=== PATIENT | male | born 1945 | race Caucasian/White ===

== ENCOUNTER → 2017-04-13 | Outpatient (CLI) | payer MEDICARE, OTHER ==
[2017-04-13 11:14] LABS: Basophils # (A) 0.1 k/uL (0-0.2); Basophils % (A) 1 %; CH 30.1; CHCM 33.7; Eosinophils # (A) 0.2 k/uL (0-0.7); Eosinophils % (A) 3 %; HCT 39.4 % (39.0-53.0); HDW 2.38; HGB 13.7 gm/dL (13.0-17.5); Luc # (Auto) 0.23; Luc % (Auto) 3; Lymphocytes # (A) 1.8 k/uL (1.0-4.8); Lymphocytes % (A) 21 %; MCH 31.1 pg (25.0-35.0); MCHC 34.7 g/dL (31.0-37.0); MCV 89.8 fL (80.0-100.0); Mean Platelet Volume 7.2; Monocytes # (A) 0.6 k/uL (0-1.0); Monocytes % (A) 7 %; Neutrophils # (A) 5.6 k/uL (1.3-7.7); Neutrophils % (A) 66 %; RBC 4.38 m/uL (4.30-5.90); RDW 12.8 % (11.5-15.5); WBC 8.6 k/uL (3.8-10.6); WBC (Perox) 9.25
[2017-04-13 13:44] LABS: Erythrocyte Sedimentation Rate 10 mm/hr (0-15)
== END | disposition home or self-care (01) ==
LOC: LABWHC1 10:20
PROVIDERS: ATTEND Orthopaedic Surgery
DX: M25.551 Pain in right hip (principal); M16.11 Unilateral primary osteoarthritis, right hip; M54.5 Low back pain; M51.36 Other intervertebral disc degeneration, lumbar region
CPT/HCPCS: 36415; 84165; 85025; 85652; 86140

== ENCOUNTER → 2017-04-23 | Outpatient (CLI) | payer MEDICARE, OTHER ==
--- NOTE | 2017-04-23 14:19 | NM ---
EXAMINATION TYPE: NM bone scan whole body DATE OF EXAM: 04/23/2017 COMPARISON: NONE HISTORY: Right hip pain. Delayed whole-body scanning was performed following the injection of 27.4 mCi Tc 99m MDP. Images acq uired 3.25 hours post injection. FINDINGS: There is evidence of a left knee prosthesis. There is increased activity in the medial comp artment of the right knee. There is increased activity in the sternoclavicular joint on the right. Th ere is some diffuse uptake in the left forefoot. No abnormal activity is noted about either hip. IMPRESSION: 1. NO ABNORMAL ACTIVITY ABOUT THE HIPS. 2. EVIDENCE OF A PREVIOUS LEFT-SIDED KNEE PROSTHESIS. 3. DEGENERATIVE ACTIVITY IN THE RIGHT KNEE AND RIGHT STERNOCLAVICULAR JOINT. 4. DIFFUSE INCREASED ACTIVITY IN THE LEFT FOREFOOT.
== END ==
LOC: RADNMMAIN 09:30
PROVIDERS: ATTEND Orthopaedic Surgery
DX: M17.11 Unilateral primary osteoarthritis, right knee (principal); M19.011 Primary osteoarthritis, right shoulder; M54.5 Low back pain
CPT/HCPCS: 78306; A9503

== ENCOUNTER → 2017-09-25 | Outpatient (CLI) | payer MEDICARE, OTHER ==
--- NOTE | 2017-09-25 10:56 | US ---
EXAMINATION TYPE: US duplex aorta DATE OF EXAM: 09/25/2017 COMPARISON: None CLINICAL HISTORY: 72-year-old male M54.6 pain in thoracic spine. Pain in lower thoracic and upper yung mbar spine x 2 days per patient. TECHNIQUE: Multiple sonographic images of the abdominal aorta are obtained. FINDINGS: EXAM MEASUREMENTS: Abdominal Aorta: Proximal: 2.7cm TR Mid: 2.4cm A/P Distal: 2.3cm TR Bifurcation: 1.4cm A/P right SUMEET, and 1.1cm A/P left SUMEET Intimal thickening and atherosclerotic irregularity is noted throughout the aorta and extending into the common iliac arteries. Color flow patency is documented. 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 No evidence for AAA.
== END ==
LOC: RADUSWWP 09:52
PROVIDERS: ATTEND Family Medicine
DX: I77.811 Abdominal aortic ectasia (principal)
CPT/HCPCS: 93979

== ENCOUNTER → 2018-05-14 | Outpatient (CLI) | payer MEDICARE, OTHER ==
--- NOTE | 2018-05-14 09:43 | US ---
EXAMINATION TYPE: US prostate transrectal DATE OF EXAM: 05/14/2018 COMPARISON: NONE CLINICAL HISTORY: R97.20 Elevated PSA levels. This examination was performed using the transrectal probe. EXAM MEASUREMENTS: Gland Size: 4.7 x 2.7 x 4.7cm Volume: 31.22 Predicted PSA: 3.7 Actual PSA (if available): 4.8 There is a cystic area at base in peripheral zone measuring 0.4 x 0.3 x 0.3cm. Mid right is a hypoechoic area in peripheral zone measuring 0.4 x 0.3 x 0.4cm. Seminal vesicles are unremarkable on initial images. Prostate gland is slightly enlarged in size with central zone calcifications. Some small cystic changes present. There is 4 x 3 x 4 mm hypoechoic nod ule or area right mid peripheral zone. IMPRESSION: Slightly enlarged heterogeneous prostate with 4 mm suspicious hypoechoic area or nodule r ight mid zone, actual PSA is slightly greater than predicted PSA, advise ultrasound-guided random and targeted sampling to exclude neoplasia.
== END | disposition home or self-care (01) ==
LOC: RADUSMAIN 08:20
PROVIDERS: ATTEND Family Medicine
DX: N40.0 Benign prostatic hyperplasia without lower urinary tract symptoms (principal)
CPT/HCPCS: 76872

== ENCOUNTER → 2018-06-06 | Outpatient (CLI) | payer MEDICARE, OTHER ==
--- NOTE | 2018-06-06 11:32 | FL ---
MODIFIED SWALLOW / DEGLUTITION STUDY DATE OF EXAM: 06/06/2018 CLINICAL HISTORY: 73-year-old male with globus sensation and some coughing/choking episodes with stacie ds and liquids, Dysphagia. TECHNIQUE: Deglutition study is performed utilizing thin liquid barium, honey and nectar thick liqui d barium, barium thick applesauce, and barium coated cracker. Total fluoroscopy time: 1 minute 40 seconds. Total images: None. Real-time fluoroscopy support was provided to speech pathology. COMPARISON: None. FINDINGS: The oral and pharyngeal phases show satisfactory initiation and propagation with all modalities teste d. Normal mastication is seen with solid modalities tested. There is no evidence of penetration or aspiration with any modality tested. Mild hypertrophy of the cricopharyngeus causing posterior impre ssion along the hypopharynx. There is also a tiny Zenker's diverticulum which fills with the liquid c onsistencies but immediately empties. The tiny Zenker's does not appear to fill with the solid consis tencies. No significant pharyngeal residue was appreciated. IMPRESSION: 1. No evidence for penetration or aspiration. 2. Incidental mild CP hypertrophy and a tiny Zenker's diverticulum which fills but immediately emptie s after swallows of liquid consistencies. It does not clearly fill with the solid consistencies. 3. Please refer to speech therapist notes for further details if necessary.
== END | disposition home or self-care (01) ==
LOC: RADFLMAIN 10:29
PROVIDERS: ATTEND Otolaryngology
DX: J39.2 Other diseases of pharynx (principal); K22.5 Diverticulum of esophagus, acquired
CPT/HCPCS: 74230

== ENCOUNTER 2019-07-05 19:15 | Emergency (ER) | payer MEDICARE, OTHER ==
[2019-07-05 20:31] LABS: Appearance,Urine Cloudy (Clear); Bacteria,Urine Many /hpf; Bilirubin,Urine Negative (Negative); Blood,Urine Moderate (Negative); Color,Urine Yellow; Glucose,Urine (UA) Negative (Negative); Ketones,Urine Negative (Negative); Leukocyte Esterase,Urine Large (Negative); Mucus,Urine Moderate /hpf; Nitrite,Urine Negative (Negative); PH, Urine 5.5 (5.0-8.0); Protein,Urine Trace (Negative); RBC,Urine 26 /hpf (0-5); Specific Gravity,Urine 1.022 (1.001-1.035); Urobilinogen,Urine <2.0 mg/dL (<2.0); WBC,Urine >182 /hpf (0-5)
[2019-07-05 20:33] LABS: Basophils % (A) 0 %; Eosinophils # (A) 0.2 k/uL (0-0.7); Eosinophils % (A) 1 %; HCT 36.8 % (39.0-53.0); Lymphocytes # (A) 1.2 k/uL (1.0-4.8); Lymphocytes % (A) 10 %; MCH 29.2 pg (25.0-35.0); MCHC 32.7 g/dL (31.0-37.0); MCV 89.4 fL (80.0-100.0); Monocytes # (A) 0.8 k/uL (0-1.0); Monocytes % (A) 7 %; Neutrophils # (A) 9.5 k/uL (1.3-7.7); Neutrophils % (A) 80 %; Platelet Count 294 k/uL (150-450); RBC 4.12 m/uL (4.30-5.90); RDW 13.2 % (11.5-15.5); WBC 11.8 k/uL (3.8-10.6)
[2019-07-05 20:36] LABS: Albumin 3.7 g/dL (3.5-5.0); Calcium 9.1 mg/dL (8.4-10.2); Potassium 4.5 mmol/L (3.5-5.1); Total Bilirubin 0.6 mg/dL (0.2-1.3); Total Protein 6.5 g/dL (6.3-8.2)
[2019-07-05] MEDS ORDERED: cefTRIAXone IN SWFI 1,000 MG/10 ML SYRINGE IVP STA (20:39)
--- NOTE | 2019-07-05 20:54 | ED ---
Male Urogenital HPI - General Chief complaint: Urogenital Stated complaint: Urogenital Time Seen by Provider: 07/05/19 19:29 Source: patient, family Mode of arrival: ambulatory Limitations: no limitations - History of Present Illness Initial comments: 74-year-old male presenting for urgency and frequency. Patient states that he has had urgency frequency and general unwell feeling for the past 24 hours. Patient states he had a recent prostate biopsy to rule out cancer. Patient states that he does not feel like he has essentially of the abdomen as well as retaining urine as MRSA sensation of constantly having to go and only urinating a small amount. Patient states he resumed his prostate medications which she had discontinued for a week prior to the surgical procedure. Patient denies any hematuria. Patient states the urine does look cloudy. Patient denies any testicular swelling or redness. Patient denies any back pain denies any record ed fevers. Remaining review of systems negative upon arrival patient appears well signs of acute distress. - Related Data Home Medications Medication Instructions Recorded Confirmed Atorvastatin [Lipitor] 10 mg PO DAILY 03/03/16 07/05/19 Cholecalciferol [Vitamin D3 (25 1,000 unit PO DAILY 03/03/16 07/05/19 Mcg = 1000 Iu)] Diclofenac Sodium/Misoprostol 1 tab PO BID 03/03/16 07/05/19 [Diclofenac-Misoprost 75-200 Tb] Losartan Potassium 100 mg PO QAM 03/03/16 07/05/19 Multivitamins, Thera [Multivitamin 1 tab PO DAILY 03/03/16 07/05/19 (formulary)] Potassium Gluconate 99 mg PO DAILY 03/03/16 07/05/19 Vitamin B Complex 1 tab PO DAILY 03/03/16 07/05/19 Aspirin EC [Ecotrin Low Dose] 81 mg PO DAILY 07/05/19 07/05/19 Tamsulosin HCl [Flomax] 0.4 mg PO DAILY 07/05/19 07/05/19 rOPINIRole HCL [Requip] 2 mg PO TID 07/05/19 07/05/19 Previous Rx's Medication Instructions Recorded Amoxic-Pot Clav 875-125Mg 1 tab PO Q12HR 7 Days #14 tablet 07/05/19 [Augmentin 875-125] Allergies Allergy/AdvReac Type Severity Reaction Status Date / Time iodine AdvReac Rapid Verified 07/05/19 20:07 Heart Rate niacin AdvReac FLUSHED Verified 07/05/19 20:07 oxycodone HCl AdvReac "MADE HIM Verified 07/05/19 20:07 [From OxyContin] GO INTO ANOTHER WORLD" shellfish derived [Shellfish] AdvReac Rapid Verified 07/05/19 20:07 Heart Rate/SEIZURE Review of Systems ROS Statement: Those systems with pertinent positive or pertinent negative responses have been documented in the HPI. ROS Other: All systems not noted in ROS Statement are negative. Past Medical History Past Medical History: GERD/Reflux, Hyperlipidemia, Hypertension, Osteoarthritis (OA), Renal Disease Additional Past Medical History / Comment(s): RESTLESS LEG, nephrolithiasis- passed on his own. History of Any Multi-Drug Resistant Organisms: None Reported Past Surgical History: Joint Replacement, Orthopedic Surgery Additional Past Surgical History / Comment(s): 03/07/16 Total L knee arthroplasty. Other surgical hx: RT ROTATOR CUFF, RT EYE CATARACT, colonoscopy Past Anesthesia/Blood Transfusion Reactions: No Reported Reaction Past Psychological History: No Psychological Hx Reported Smoking Status: Former smoker Past Alcohol Use History: None Reported Past Drug Use History: None Reported - Past Family History Mother Family Medical History: Dementia Additional Family Medical History / Comment(s): Mother at age 91 or 92 yrs. She had dementia later in her life. Father Additional Family Medical History / Comment(s): Father of heart problems at the age of 78 yrs. General Exam - General Exam Comments Initial Comments: General: The patient is awake and alert, in no distress, and does not appear acutely ill. Eye: Pupils are equal, round and reactive to light, extra-ocular movements are intact. No nystagmus. There is normal conjunctiva bilaterally. No signs of icterus. Ears, nose, mouth and throat: There are moist mucous membranes and no oral lesions. Neck: The neck is supple, there is no tenderness or JVD. Cardiovascular: There is a regular rate and rhythm. No murmur, rub or gallop is appreciated. Respiratory: Lungs are clear to auscultation, respirations are non-labored, breath sounds are equal. No wheezes, stridor, rales, or rhonchi. Gastrointestinal: Soft, non-distended, non-tender abdomen without masses or organomegaly noted. There is no rebound or guarding present. No CVA tenderness. No testicular swelling, pain to palpation or redness on exam. Musculoskeletal: Normal ROM, no tenderness. Strength 5/5. Sensation intact. Pulses equal bilaterally 2+. Neurological: A&O x 3. CN II-XII intact, There are no obvious motor or sensory deficits. Coordination appears grossly intact. Speech is normal. Skin: Skin is warm and dry and no rashes or lesions are noted. Psychiatric: Cooperative, appropriate mood & affect, normal judgment. Limitations: no limitations Course Vital Signs 07/05/19 07/05/19 19:22 20:53 Temperature 100 F H 99.1 F Pulse Rate 69 67 Respiratory 20 18 Rate Blood Pressure 138/65 108/63 O2 Sat by Pulse 98 94 L Oximetry Medical Decision Making - Medical Decision Making 74-year-old male presenting her constitutional symptoms urgency frequency. is concerned for urinary tract infection. Urinalysis is consistent with a urinary tract infection. Patient does not appear toxic. Patient is provided dose of ceftriaxone emergency department. Patient's urologist was consult and we discussed laboratory studies and urinalysis. They recommended discharge with Augmentin and follow-up in the office on Sunday. Return parameters were discussed including immediate return for worsening generalized unwell feeling, high fevers or persistent symptoms, urinary retention, abdominal pain. Patient verbalizes understanding. Patient was discharged appearing well agreeable to this care plan return parameters and follow-up. Discharge appearing well, pleased with plan. Dr. Joseph spoke with Dr. Guzman, and is agreeable with plan. - Lab Data Result diagrams: 07/05/19 20:13 07/05/19 20:13 Lab Results 07/05/19 07/05/19 07/05/19 Range/Units 20:13 20:13 20:13 WBC 11.8 H (3.8-10.6) k/uL RBC 4.12 L (4.30-5.90) m/uL Hgb 12.0 L (13.0-17.5) gm/dL Hct 36.8 L (39.0-53.0) % MCV 89.4 (80.0-100.0) fL MCH 29.2 (25.0-35.0) pg MCHC 32.7 (31.0-37.0) g/dL RDW 13.2 (11.5-15.5) % Plt Count 294 (150-450) k/uL Neutrophils % 80 % Lymphocytes % 10 % Monocytes % 7 % Eosinophils % 1 % Basophils % 0 % Neutrophils # 9.5 H (1.3-7.7) k/uL Lymphocytes # 1.2 (1.0-4.8) k/uL Monocytes # 0.8 (0-1.0) k/uL Eosinophils # 0.2 (0-0.7) k/uL Basophils # 0.0 (0-0.2) k/uL Sodium 137 (137-145) mmol/L Potassium 4.5 (3.5-5.1) mmol/L Chloride 105 (98-107) mmol/L Carbon Dioxide 22 (22-30) mmol/L Anion Gap 10 mmol/L BUN 35 H (9-20) mg/dL Creatinine 1.22 (0.66-1.25) mg/dL Est GFR (CKD-EPI)AfAm 68 (>60 ml/min/1.73 sqM) Est GFR (CKD-EPI)NonAf 59 (>60 ml/min/1.73 sqM) Glucose 125 H (74-99) mg/dL Calcium 9.1 (8.4-10.2) mg/dL Total Bilirubin 0.6 (0.2-1.3) mg/dL AST 28 (17-59) U/L ALT 32 (21-72) U/L Alkaline Phosphatase 78 (38-126) U/L Total Protein 6.5 (6.3-8.2) g/dL Albumin 3.7 (3.5-5.0) g/dL Urine Color Yellow Urine Appearance Cloudy (Clear) Urine pH 5.5 (5.0-8.0) Ur Specific [place] 1.022 (1.001-1.035) Urine Protein Trace H (Negative) Urine Glucose (UA) Negative (Negative) Urine Ketones Negative (Negative) Urine Blood Moderate H (Negative) Urine Nitrite Negative (Negative) Urine Bilirubin Negative (Negative) Urine Urobilinogen <2.0 (<2.0) mg/dL Ur Leukocyte Esterase Large H (Negative) Urine RBC 26 H (0-5) /hpf Urine WBC >182 H (0-5) /hpf Urine WBC Clumps Many H (None) /hpf Urine Bacteria Many H (None) /hpf Urine Mucus Moderate H (None) /hpf Disposition Clinical Impression: UTI (urinary tract infection), Urgency of urination, Frequency of urination Disposition: HOME SELF-CARE Condition: Good Instructions (If sedation given, give patient instructions): Urinary Tract Infection in Men (ED) Additional Instructions: Please use medication as discussed. Please follow-up with Dr. Hunter or Megan on Sunday. Please return if develop fever, feel worse. Please return to emergency room if the symptoms increase or worsen or for any other concerns. Prescriptions: Amoxic-Pot Clav 875-125Mg [Augmentin 875-125] 1 tab PO Q12HR 7 Days #14 tablet Is patient prescribed a controlled substance at d/c from ED?: No Referrals: Donta Rodriguez MD [Primary Care Provider] - 1-2 days Zackary Hunter MD [STAFF PHYSICIAN] - 07/07/19 Time of Disposition: 20:54
[2019-07-05 20:55] VITALS: PULSE 67; RESP 18; TEMP 99.1
[2019-07-05 20:56] VITALS: BP 108/63
== END 2019-07-05 21:06 | disposition home or self-care (01) ==
LOC: EC 19:15
DX: N39.0 Urinary tract infection, site not specified (principal); I10 Essential (primary) hypertension; E78.5 Hyperlipidemia, unspecified; M19.90 Unspecified osteoarthritis, unspecified site; Z79.1 Long term (current) use of non-steroidal anti-inflammatories (NSAID); Z79.899 Other long term (current) drug therapy; Z79.82 Long term (current) use of aspirin; Z88.5 Allergy status to narcotic agent; Z88.1 Allergy status to other antibiotic agents; Z91.013 Allergy to seafood; Z91.041 Radiographic dye allergy status; Z96.652 Presence of left artificial knee joint; Z87.891 Personal history of nicotine dependence
CPT/HCPCS: 51798; 36415; 80053; 85025; 81001; 99283; 96374; J0696

== ENCOUNTER → 2019-09-01 | Outpatient (CLI) | payer MEDICARE ==
--- NOTE | 2019-09-01 15:28 | US ---
EXAMINATION TYPE: US scrotum with doppler. Grayscale and color Doppler Duplex imaging performed of keven pereira scrotum. DATE OF EXAM: 09/01/2019 COMPARISON: NONE CLINICAL HISTORY: N45.2 Orchitis. Right testicular swelling for 3 days EXAM MEASUREMENTS: TESTICLES: Right Testicle: 3.2 x 2.4 x 2.9 cm Left Testicle: 3.6 x 2.3 x 2.2 cm EPIDIDYMIS HEAD: Right Epididymis: 1.2 x 0.9 cm Left Epididymis: 1.9 x 0.8 cm Doppler performed to assess for testicular vascularity; good bilateral color flow and waveforms are s een. There is no evidence of testicular torsion. Presence of hydroceles: fluid collection around bilateral testicles, right greater than left. Right measures 2.9 x 2.3 x 4.5 cm Presence of varicoceles: posterior to left testicle, increased flow with valsalva. Increased flow in right testicle and epididymis. The right epi tail is enlarged and heterogeneous. IMPRESSION: 1. Findings of right-sided epididymal orchitis as stated in the patient history. There is also a mode rate uncomplicated right hydrocele, possibly reactive. 2. Left-sided varicocele incidentally seen. 3. Moderate left hydrocele with some internal debris.
== END | disposition home or self-care (01) ==
LOC: RADUSWWP 14:40
PROVIDERS: ATTEND Internal Medicine
DX: N45.2 Orchitis (principal); N43.2 Other hydrocele
CPT/HCPCS: 76870; 93975

== ENCOUNTER 2019-11-01 03:23 | Emergency (ER) | payer MEDICARE ==
[2019-11-01 03:33] VITALS: RESP 18
--- NOTE | 2019-11-01 05:46 | US ---
EXAM: US Scrotum CLINICAL HISTORY: Reason: scrotal swelling TECHNIQUE: Real-time ultrasound of the scrotum with color Doppler and image documentation. COMPARISON: 09/01/19. FINDINGS: Right testicle: Unremarkable. No mass. No torsion. Left testicle: Unremarkable. No mass. No torsion. Epididymides: Unremarkable. Scrotum: There is marked scrotal edema, new or significantly worsened since the prior exam. No loculated scrotal fluid collection or evidence of soft tissue gas. Small to moderate sized left-sided hydrocele and trace right hydrocele. IMPRESSION: Marked scrotal edema, which may be due to a cellulitis, hypervolemia or associated with recent surgery. No testicular torsion or lesions.
--- NOTE | 2019-11-01 06:07 | ED ---
Male Urogenital HPI - General Chief complaint: Urogenital Stated complaint: Post prostate surg issues Time Seen by Provider: 11/01/19 03:53 Source: patient Mode of arrival: wheelchair Limitations: no limitations - History of Present Illness Initial comments: 's patient is a 74-year-old man who presents to have evaluation for scrotal swelling. The patient relates that he had what sounds like a laparoscopic prostatectomy performed at [facility] by Dr. Scott Small. Patient states that he had been doing well at home other than having a little bit of constipation. Yesterday in the evening, he had taken bowel sounds like an enema and then had been straining to have a bowel movement. He states that he did eventually pass a large amount of stool. Patient states that he then went and was able to sleep. When he woke he noticed that his scrotum had developed moderate amount of swelling. Patient has not had fever or chills. He is not having significant pain. He has not noticed a change in urine output. He does have the Newby catheter that has been present since his surgery. No abdomen or chest pain no cough or dyspnea. No leg swelling. MD Complaint: testicle swelling -: hour(s) Radiation: none Severity: mild Quality: dull Consistency: constant Improves with: none Worsens with: none Reports: swelling - Related Data Home Medications Medication Instructions Recorded Confirmed Atorvastatin [Lipitor] 10 mg PO DAILY 03/03/16 07/05/19 Cholecalciferol [Vitamin D3 (25 1,000 unit PO DAILY 03/03/16 07/05/19 Mcg = 1000 Iu)] Diclofenac Sodium/Misoprostol 1 tab PO BID 03/03/16 07/05/19 [Diclofenac-Misoprost 75-200 Tb] Losartan Potassium 100 mg PO QAM 03/03/16 07/05/19 Multivitamins, Thera [Multivitamin 1 tab PO DAILY 03/03/16 07/05/19 (formulary)] Potassium Gluconate 99 mg PO DAILY 03/03/16 07/05/19 Vitamin B Complex 1 tab PO DAILY 03/03/16 07/05/19 Aspirin EC [Ecotrin Low Dose] 81 mg PO DAILY 07/05/19 07/05/19 Tamsulosin HCl [Flomax] 0.4 mg PO DAILY 07/05/19 07/05/19 rOPINIRole HCL [Requip] 2 mg PO TID 07/05/19 07/05/19 Previous Rx's Medication Instructions Recorded Amoxic-Pot Clav 875-125Mg 1 tab PO Q12HR 7 Days #14 tablet 07/05/19 [Augmentin 875-125] Allergies Allergy/AdvReac Type Severity Reaction Status Date / Time iodine AdvReac Rapid Verified 11/01/19 03:33 Heart Rate niacin AdvReac FLUSHED Verified 11/01/19 03:33 oxycodone HCl AdvReac "MADE HIM Verified 11/01/19 03:33 [From OxyContin] GO INTO ANOTHER WORLD" shellfish derived [Shellfish] AdvReac Rapid Verified 11/01/19 03:33 Heart Rate/SEIZURE Review of Systems ROS Statement: Those systems with pertinent positive or pertinent negative responses have been documented in the HPI. ROS Other: All systems not noted in ROS Statement are negative. Constitutional: Denies: fever, chills, weakness Respiratory: Denies: cough, dyspnea Cardiovascular: Denies: chest pain, palpitations, edema Gastrointestinal: Reports: as per HPI, constipation. Denies: abdominal pain, vomiting, diarrhea, melena, hematochezia Genitourinary: Reports: as per HPI, testicular mass (scrotal swelling). Denies: dysuria, hematuria Musculoskeletal: Denies: back pain Skin: Denies: rash Neurological: Denies: weakness, numbness Past Medical History Past Medical History: GERD/Reflux, Hyperlipidemia, Hypertension, Osteoarthritis (OA), Prostate Disorder, Renal Disease Additional Past Medical History / Comment(s): RESTLESS LEG, nephrolithiasis- passed on his own. History of Any Multi-Drug Resistant Organisms: None Reported Past Surgical History: Joint Replacement, Orthopedic Surgery, Prostate Surgery Additional Past Surgical History / Comment(s): 03/07/16 Total L knee arthroplasty. Other surgical hx: RT ROTATOR CUFF, RT EYE CATARACT, colonoscopy, prostate removed, Past Anesthesia/Blood Transfusion Reactions: No Reported Reaction Past Psychological History: No Psychological Hx Reported Smoking Status: Former smoker Past Alcohol Use History: Rare Past Drug Use History: None Reported - Past Family History Mother Family Medical History: Dementia Additional Family Medical History / Comment(s): Mother at age 91 or 92 yrs. She had dementia later in her life. Father Additional Family Medical History / Comment(s): Father of heart problems at the age of 78 yrs. General Exam Limitations: no limitations General appearance: alert, in no apparent distress Head exam: Present: atraumatic, normocephalic Eye exam: Present: normal appearance. Absent: scleral icterus, conjunctival injection Respiratory exam: Present: normal lung sounds bilaterally. Absent: respiratory distress, wheezes, rales, rhonchi, stridor Cardiovascular Exam: Present: regular rate, normal rhythm, normal heart sounds. Absent: systolic murmur, diastolic murmur, rubs, gallop GI/Abdominal exam: Present: soft. Absent: distended, tenderness, guarding, rebound, rigid, organomegaly, pulsatile mass, hernia exam: Present: scrotal swelling, other (there is a Newby catheter present with clear yellow urine.). Absent: testicular tenderness External exam: Present: ecchymosis Extremities exam: Present: normal inspection, normal capillary refill. Absent: pedal edema, calf tenderness Back exam: Present: normal inspection. Absent: CVA tenderness (R), CVA tenderness (L) Neurological exam: Present: alert Skin exam: Present: warm, dry, intact, normal color. Absent: rash Course Vital Signs 11/01/19 03:30 Temperature 98.2 F Pulse Rate 89 Respiratory 18 Rate Blood Pressure 153/82 O2 Sat by Pulse 97 Oximetry Medical Decision Making - Medical Decision Making 's patient is a 74-year-old man presenting with scrotal edema that came on tonight after having a bowel movement. Patient is status post prostatectomy. We did obtain a scrotal ultrasound which does not show torsion or concerning mass. I did page Dr. Small, , to discuss the exam findings and the results. The patient did state that he was feeling well and was going home and I did not want to wait for the return call. Disposition Clinical Impression: Edema of scrotum Disposition: HOME SELF-CARE Condition: Fair Instructions (If sedation given, give patient instructions): Scrotal Pain (ED) Is patient prescribed a controlled substance at d/c from ED?: No Referrals: Donta Rodriguez MD [Primary Care Provider] - 1-2 days
[2019-11-01 06:24] VITALS: BP 133/72; PULSE 80; TEMP 97.9
== END 2019-11-01 06:24 | disposition home or self-care (01) ==
LOC: EC 03:23
DX: N50.89 Other specified disorders of the male genital organs (principal); Z90.79 Acquired absence of other genital organ(s); E78.5 Hyperlipidemia, unspecified; I10 Essential (primary) hypertension; M19.90 Unspecified osteoarthritis, unspecified site; Z79.82 Long term (current) use of aspirin; Z79.899 Other long term (current) drug therapy; Z88.5 Allergy status to narcotic agent; Z88.8 Allergy status to other drugs, medicaments and biological substances; Z91.048 Other nonmedicinal substance allergy status; Z91.013 Allergy to seafood; Z96.652 Presence of left artificial knee joint; Z87.891 Personal history of nicotine dependence
CPT/HCPCS: 76870; 93975; 99283

== ENCOUNTER → 2019-11-10 | Outpatient (CLI) | payer MEDICARE ==
--- NOTE | 2019-11-10 14:14 | US ---
EXAMINATION TYPE: US venous doppler duplex LE RT DATE OF EXAM: 11/10/2019 2:05 PM COMPARISON: None CLINICAL HISTORY: 74-year-old male R60.0 Localized edema. Pt states right leg swelling SIDE PERFORMED: Right TECHNIQUE: The lower extremity deep venous system is examined utilizing real time linear array sonog katia with graded compression, doppler sonography and color-flow sonography. FINDINGS: VESSELS IMAGED: External Iliac Vein (EIV) Common Femoral Vein Deep Femoral Vein Greater Saphenous Vein * Femoral Vein Popliteal Vein Small Saphenous Vein * Proximal Calf Veins (* superficial vessels) Right Leg: Negative for DVT Results called to Radha at Dr's office at time of exam IMPRESSION: No evidence for DVT within the right lower extremity imaged from the groin to the upper calf.
== END | disposition home or self-care (01) ==
LOC: RADUSWWP 13:44
PROVIDERS: ATTEND Family Medicine
DX: R60.0 Localized edema (principal)

== ENCOUNTER → 2021-09-06 | Outpatient (CLI) | payer MEDICARE, OTHER ==
--- NOTE | 2021-09-06 17:15 | XR ---
EXAMINATION TYPE: XR skull limited DATE OF EXAM: 09/06/2021 COMPARISON: NONE HISTORY: 76 years Male. STUDY INDICATION GIVEN: M25.552,I63.9 . TECHNIQUE: Frontal lateral radiographs of the skull IMPRESSION: There is an osseous density projecting in the region of the occipital bone with mild overlying soft t issue thickening. This is of unknown clinical significance. Nuchal correlation recommended. No acute fracture or dislocation seen. Air is seen within the paranasal sinuses and mastoid air cells.
== END | disposition home or self-care (01) ==
LOC: RADXRMAIN 16:24
PROVIDERS: ATTEND Orthopaedic Surgery
DX: I63.9 Cerebral infarction, unspecified (principal)
CPT/HCPCS: 70250

== ENCOUNTER → 2022-11-06 | Outpatient (CLI) | payer MEDICARE, OTHER ==
--- NOTE | 2022-11-06 11:45 | FL ---
Fluoroscopy, sniff test INDICATION: Abnormal left diaphragm since stroke FINDINGS: Fluoroscopy time: 35 seconds. Images obtained: 0. There is elevation of the right diaphragm. There appears to be symmetrical excursion of the diaphragm s with quite breathing. With sniffing there appears to be appropriate motion with the diaphragms. No paradoxical diaphragm motion is evident. No diminished diaphragm motion is evident. IMPRESSIONS: 1. Normal sniff test.
--- NOTE | 2022-11-06 12:00 | FL ---
EXAMINATION TYPE: FL barium swallow w video DATE OF EXAM: 11/06/2022 COMPARISON: NONE HISTORY: Disorder of the diaphragm, dysphasia TECHNIQUE: Fluoroscopy. FINDINGS: Fluoroscopic guidance was provided for the procedure performed in conjunction with the [facility] pathology department. Please see complete report forthcoming from the Speech Pathology departmen t. Various consistencies from thin liquid to solids were administered. Fluoroscopy time 1 minute 32 seconds. Number of images: 0. There is transient penetration during one of 3 thin liquid swallowing. No additional penetration was evident. No aspiration was evident. No significant pooling was observed in the vallecula. There was normal propulsion of the bolus. IMPRESSION: 1. Transient penetration with thin liquid
== END | disposition home or self-care (01) ==
LOC: RADUSWWP 10:04
PROVIDERS: ATTEND Internal Medicine
DX: J98.6 Disorders of diaphragm (principal); R13.10 Dysphagia, unspecified; Z86.73 Personal history of transient ischemic attack (TIA), and cerebral infarction without residual deficits
CPT/HCPCS: 74230; 76000

== ENCOUNTER 2024-06-17 02:36 | Emergency (ER) | payer MEDICARE, OTHER ==
[2024-06-17 04:21] LABS: HCT 32.6 % (39.0-53.0); HGB 10.8 gm/dL (13.0-17.5); MCHC 33.2 g/dL (31.0-37.0); MCV 87.2 fL (80.0-100.0); RBC 3.73 m/uL (4.30-5.90); RDW 13.3 % (11.5-15.5); WBC 9.9 k/uL (3.8-10.6)
[2024-06-17 04:22] LABS: Basophils % (A) 0 %; Eosinophils # (A) 0.3 k/uL (0-0.7); Eosinophils % (A) 3 %; Lymphocytes # (A) 0.7 k/uL (1.0-4.8); Lymphocytes % (A) 7 %; Monocytes # (A) 0.6 k/uL (0-1.0); Monocytes % (A) 6 %; Neutrophils # (A) 8.3 k/uL (1.3-7.7); Neutrophils % (A) 84 %; Platelet Count 290 k/uL (150-450)
--- NOTE | 2024-06-17 04:26 | CT ---
EXAM: CT Head Without Intravenous Contrast CLINICAL HISTORY: L weakness TECHNIQUE: Axial computed tomography images of the head/brain without intravenous contrast. CTDI is 49.2 mGy and DLP is 1213.4 mGy-cm. This CT exam was performed using one or more of the following dose reduction techniques: automated exposure control, adjustment of the mA and/or kV according to patient size, and/or use of iterative reconstruction technique. COMPARISON: No relevant prior studies available. FINDINGS: Brain: No intracranial hemorrhage. Encephalomalacia involving the right parietotemporal region, to include the external capsule and lateral aspect of the right basal ganglia. No significant mass-effect. Deep white matter hypodense changes noted bilaterally, right greater than left. Ventricles: Slight ex vacuo dilatation of the right lateral ventricle. No midline shift or ventriculomegaly. Bones/joints: Unremarkable. No acute fracture. Soft tissues: Unremarkable. Sinuses: Unremarkable as visualized. No acute sinusitis. Mastoid air cells: Unremarkable as visualized. No mastoid effusion. IMPRESSION: No cranial hemorrhage, significant mass-effect or midline shift. Encephalomalacia involving the right parietotemporal region and right basal ganglia appears subacute to chronic. No prior imaging available however.
[2024-06-17 04:31] LABS: ALT 14 U/L (4-49); AST 22 U/L (17-59); African American GFR (CKD) 58 (>60 ml/min/1.73 sqM); Albumin 3.7 g/dL (3.5-5.0); Alkaline Phosphatase 102 U/L (38-126); Anion Gap 10 mmol/L; Blood Urea Nitrogen 31 mg/dL (9-20); Calcium 9.3 mg/dL (8.4-10.2); Carbon Dioxide 17 mmol/L (22-30); Chloride 104 mmol/L (98-107); Glucose 116 mg/dL (74-99); Non-African American GFR(CKD) 50 (>60 ml/min/1.73 sqM); Potassium 4.6 mmol/L (3.5-5.1); Sodium 131 mmol/L (137-145); Total Bilirubin 0.6 mg/dL (0.2-1.3); Total Protein 6.2 g/dL (6.3-8.2)
--- NOTE | 2024-06-17 06:04 | ED ---
Dizziness HPI - General Source: patient, family Mode of arrival: EMS - History of Present Illness Complaint: dizziness -: hour(s) Timing: sudden onset Description: "room spinning", off-balance History of Same: No History of Trauma: No Severity: moderate Improves With: remaining still Worsens With: nothing Associated Symptoms: denies other symptoms <Sj Peck - Last Filed: 06/17/24 07:29> <Maurice Mandujano - Last Filed: 06/17/24 08:10> - General Chief Complaint: Dizziness Stated Complaint: Dizziness Time Seen by Provider: 06/17/24 02:54 - Related Data Home Medications Medication Instructions Recorded Confirmed Atorvastatin [Lipitor] 10 mg PO DAILY 03/03/16 07/05/19 Cholecalciferol [Vitamin D3 (25 1,000 unit PO DAILY 03/03/16 07/05/19 Mcg = 1000 Iu)] Diclofenac Sodium/Misoprostol 1 tab PO BID 03/03/16 07/05/19 [Diclofenac-Misoprost 75-0.2 mg] Losartan Potassium 100 mg PO QAM 03/03/16 07/05/19 Multivitamins, Thera [Multivitamin 1 tab PO DAILY 03/03/16 07/05/19 (formulary)] Potassium Gluconate [Potassium 99 mg PO DAILY 03/03/16 07/05/19 Gluconate ER] Vitamin B Complex 1 tab PO DAILY 03/03/16 07/05/19 Aspirin EC [Ecotrin Low Dose] 81 mg PO DAILY 07/05/19 07/05/19 Tamsulosin HCl [Flomax] 0.4 mg PO DAILY 07/05/19 07/05/19 rOPINIRole HCL [Requip] 2 mg PO TID 07/05/19 07/05/19 Previous Rx's Medication Instructions Recorded Amoxic-Pot Clav 875-125Mg 1 tab PO Q12HR 7 Days #14 tablet 07/05/19 [Augmentin 875-125] Allergies Allergy/AdvReac Type Severity Reaction Status Date / Time iodine AdvReac Rapid Verified 06/17/24 02:44 Heart Rate niacin AdvReac FLUSHED Verified 06/17/24 02:44 oxycodone HCl AdvReac "MADE HIM Verified 06/17/24 02:44 [From OxyContin] GO INTO ANOTHER WORLD" shellfish derived [Shellfish] AdvReac Rapid Verified 06/17/24 02:44 Heart Rate/SEIZURE Review of Systems ROS Other: All systems not noted in ROS Statement are negative. Constitutional: Denies: fever, chills, weakness Eyes: Denies: vision change Respiratory: Denies: cough, dyspnea Cardiovascular: Denies: chest pain, palpitations, edema Gastrointestinal: Reports: nausea. Denies: abdominal pain, vomiting Genitourinary: Denies: dysuria, hematuria Musculoskeletal: Denies: back pain Skin: Denies: rash Neurological: Denies: headache, weakness, numbness <CiscoSj - Last Filed: 06/17/24 07:29> ROS Other: All systems not noted in ROS Statement are negative. <Maurice Mandujano - Last Filed: 06/17/24 08:10> ROS Statement: Those systems with pertinent positive or pertinent negative responses have been documented in the HPI. Past Medical History Past Medical History: GERD/Reflux, Hyperlipidemia, Hypertension, Osteoarthritis (OA), Prostate Disorder, Renal Disease Additional Past Medical History / Comment(s): RESTLESS LEG, nephrolithiasis- passed on his own. History of Any Multi-Drug Resistant Organisms: None Reported Past Surgical History: Joint Replacement, Orthopedic Surgery, Prostate Surgery Additional Past Surgical History / Comment(s): 03/07/16 Total L knee arthroplasty. Other surgical hx: RT ROTATOR CUFF, RT EYE CATARACT, c olonoscopy, prostate removed, Past Anesthesia/Blood Transfusion Reactions: No Reported Reaction Past Psychological History: No Psychological Hx Reported Smoking Status: Never smoker Past Alcohol Use History: Rare Past Drug Use History: None Reported - Past Family History Mother Family Medical History: Dementia Additional Family Medical History / Comment(s): Mother at age 91 or 92 yrs. She had dementia later in her life. Father Additional Family Medical History / Comment(s): Father of heart problems at the age of 78 yrs. <Sj Peck - Last Filed: 06/17/24 07:29> General Exam General appearance: alert, in no apparent distress Head exam: Present: atraumatic, normocephalic Eye exam: Present: normal appearance. Absent: scleral icterus, conjunctival injection ENT exam: Present: mucous membranes dry Neck exam: Present: normal inspection, full ROM. Absent: tenderness Respiratory exam: Present: normal lung sounds bilaterally. Absent: respiratory distress, wheezes, rales, rhonchi, stridor, accessory muscle use Cardiovascular Exam: Present: regular rate, normal rhythm, normal heart sounds. Absent: systolic murmur, diastolic murmur, rubs, gallop GI/Abdominal exam: Present: soft. Absent: distended, tenderness, guarding, rebound, rigid, mass Extremities exam: Present: normal inspection, normal capillary refill. Absent: pedal edema, calf tenderness Neurological exam: Present: alert, oriented X3, motor sensory deficit (Patient has left sided weakness states due to recent stroke) Skin exam: Present: warm, dry, intact, normal color. Absent: rash <CiscoSj - Last Filed: 06/17/24 07:29> Course Vital Signs 06/17/24 06/17/24 06/17/24 02:37 05:00 08:06 Temperature 98.2 F 98.0 F Pulse Rate 89 78 78 Respiratory 18 17 18 Rate Blood Pressure 105/61 108/58 100/61 O2 Sat by Pulse 96 96 96 Oximetry EKG Findings - EKG Results: EKG: interpreted by JODY, sinus rhythm (82 bpm) - Blocks, [place], Hypertrophy, ST Abn: QRS axis and voltage: left axis deviation (-30 to -90), pulmonary disease Chamber hypertrophy or enlargement: only voltage criteria for left ventricular hypertrophy <Sj Peck - Last Filed: 06/17/24 07:29> Medical Decision Making - Lab Data Result diagrams: 06/17/24 03:45 06/17/24 03:45 <Sj Peck - Last Filed: 06/17/24 07:29> - Lab Data Result diagrams: 06/17/24 03:45 06/17/24 03:45 <Maurice Mandujano - Last Filed: 06/17/24 08:10> - Medical Decision Making Patient signed out to me pending results of imaging. Originally presented for dizziness and was cleared for discharge home his workup was unremarkable however then patient was complaining of neck pain and shoulder pain which is chronic. CT imaging of the neck and shoulder were pending. Workup otherwise did reveal mild dehydration but no other obvious acute findings. CT brain as interpreted myself reveals no obvious acute intracranial process. Shoulder x-rays int erpreted by myself reveals no obvious traumatic injury or process. Cervical spine CT reveals no obvious acute injury. Patient does have degenerative changes of the spine. I did order a small fluid bolus for the patient. I updated family as well as patient regarding the results of the imaging and plan for discharge back to his long-term. They were in agreement this plan. I instructed the patient to follow up with their PCP in the next 1-3 days. I explained that the patient should return to the emergency department if they experience any worsening symptoms. Strict return precautions were discussed with the patient. The patient expressed understanding of these instructions. I answered all questions that the patient had. The patient was discharged home in good condition with their prescriptions and follow up information. Diagnosis/symptom? @ -Dehydration, dizziness Acute, or Chronic, or Acute on Chronic? @ -Acute Uncomplicated (without systemic symptoms) or Complicated (systemic symptoms)? @ -Uncomplicated Side effects of treatment? @ -None Exacerbation, Progression, or Severe Exacerbation] @ -No Poses a threat to life or bodily function? @ -Unlikely Diagnosis/symptom? @ -Neck pain Acute, or Chronic, or Acute on Chronic? @ -Chronic Uncomplicated (without systemic symptoms) or Complicated (systemic symptoms)? @ -Uncomplicated Side effects of treatment? @ -None Exacerbation, Progression, or Severe Exacerbation] @ -No Poses a threat to life or bodily function? @ -No (Maurice Mandujano) - Lab Data Lab Results 06/17/24 06/17/24 06/17/24 Range/Units 03:45 03:45 03:45 WBC 9.9 (3.8-10.6) k/uL RBC 3.73 L (4.30-5.90) m/uL Hgb 10.8 L (13.0-17.5) gm/dL Hct 32.6 L (39.0-53.0) % MCV 87.2 (80.0-100.0) fL MCH 29.0 (25.0-35.0) pg MCHC 33.2 (31.0-37.0) g/dL RDW 13.3 (11.5-15.5) % Plt Count 290 (150-450) k/uL MPV 8.0 Neutrophils % 84 % Lymphocytes % 7 % Monocytes % 6 % Eosinophils % 3 % Basophils % 0 % Neutrophils # 8.3 H (1.3-7.7) k/uL Lymphocytes # 0.7 L (1.0-4.8) k/uL Monocytes # 0.6 (0-1.0) k/uL Eosinophils # 0.3 (0-0.7) k/uL Basophils # 0.0 (0-0.2) k/uL Sodium 131 L (137-145) mmol/L Potassium 4.6 (3.5-5.1) mmol/L Chloride 104 (98-107) mmol/L Carbon Dioxide 17 L (22-30) mmol/L Anion Gap 10 mmol/L BUN 31 H (9-20) mg/dL Creatinine 1.35 H (0.66-1.25) mg/dL Est GFR (CKD-EPI)AfAm 58 (>60 ml/min/1.73 sqM) Est GFR (CKD-EPI)NonAf 50 (>60 ml/min/1.73 sqM) Glucose 116 H (74-99) mg/dL Lactic Ac Sepsis Rflx Plasma Lactic Acid Calos 2.3 H* (0.7-2.0) mmol/L Calcium 9.3 (8.4-10.2) mg/dL Total Bilirubin 0.6 (0.2-1.3) mg/dL AST 22 (17-59) U/L ALT 14 (4-49) U/L Alkaline Phosphatase 102 (38-126) U/L Troponin I (0.000-0.034) ng/mL Total Protein 6.2 L (6.3-8.2) g/dL Albumin 3.7 (3.5-5.0) g/dL 06/17/24 06/17/24 06/17/24 Range/Units 03:45 05:19 07:28 WBC (3.8-10.6) k/uL RBC (4.30-5.90) m/uL Hgb (13.0-17.5) gm/dL Hct (39.0-53.0) % MCV (80.0-100.0) fL MCH (25.0-35.0) pg MCHC (31.0-37.0) g/dL RDW (11.5-15.5) % Plt Count (150-450) k/uL MPV Neutrophils % % Lymphocytes % % Monocytes % % Eosinophils % % Basophils % % Neutrophils # (1.3-7.7) k/uL Lymphocytes # (1.0-4.8) k/uL Monocytes # (0-1.0) k/uL Eosinophils # (0-0.7) k/uL Basophils # (0-0.2) k/uL Sodium (137-145) mmol/L Potassium (3.5-5.1) mmol/L Chloride (98-107) mmol/L Carbon Dioxide (22-30) mmol/L Anion Gap mmol/L BUN (9-20) mg/dL Creatinine (0.66-1.25) mg/dL Est GFR (CKD-EPI)AfAm (>60 ml/min/1.73 sqM) Est GFR (CKD-EPI)NonAf (>60 ml/min/1.73 sqM) Glucose (74-99) mg/dL Lactic Ac Sepsis Rflx Y Plasma Lactic Acid Calos 1.2 (0.7-2.0) mmol/L Calcium (8.4-10.2) mg/dL Total Bilirubin (0.2-1.3) mg/dL AST (17-59) U/L ALT (4-49) U/L Alkaline Phosphatase (38-126) U/L Troponin I <0.012 (0.000-0.034) ng/mL Total Protein (6.3-8.2) g/dL Albumin (3.5-5.0) g/dL Disposition Is patient prescribed a controlled substance at d/c from ED?: No <Sj Peck - Last Filed: 06/17/24 07:29> Is patient prescribed a controlled substance at d/c from ED?: No Time of Disposition: 08:10 <Maurice Mandujano - Last Filed: 06/17/24 08:10> Clinical Impression: Dizziness, Neck pain Disposition: HOME SELF-CARE Condition: Good Instructions (If sedation given, give patient instructions): Dizziness (ED) Referrals: Yaya Ramirez MD [Primary Care Provider] - 1-2 days
--- NOTE | 2024-06-17 07:13 | XR ---
EXAM: XR Left Shoulder Complete, 2 or More Views CLINICAL HISTORY: Fall, injury. TECHNIQUE: 3 views of the left shoulder. COMPARISON: No relevant prior studies available. FINDINGS: Bones/joints: There is no evidence of acute fracture or dislocation. Hill-Sachs deformity along the superolateral margin of the left humeral head most consistent with prior shoulder dislocation. Soft tissues: No significant soft tissue abnormality. IMPRESSION: No acute osseous abnormality.
--- NOTE | 2024-06-17 07:19 | CT ---
EXAM: CT Cervical Spine Without Intravenous Contrast CLINICAL HISTORY: Reason: fall injury TECHNIQUE: Axial computed tomography images of the cervical spine without intravenous contrast. CTDI is 14.1 mGy and DLP is 468.2 mGy-cm. This CT exam was performed using one or more of the following dose reduction techniques: automated exposure control, adjustment of the mA and/or kV according to patient size, and/or use of iterative reconstruction technique. COMPARISON: No relevant prior studies available. FINDINGS: Vertebrae: No evidence of acute fracture or subluxation. Discs/spinal canal/neural foramina: No acute findings. Moderate multilevel degenerative changes, with mild degenerative retrolisthesis at C3-C4 and mild central canal stenosis at this level. Soft tissues: No prevertebral soft tissue swelling. Right internal carotid stent. IMPRESSION: No evidence of acute fracture or malalignment of the cervical spine. Moderate multilevel degenerative changes.
[2024-06-17 08:07] VITALS: RESP 18
[2024-06-17] MEDS: SODIUM CHLORIDE 0.9% 500 ML 500 ML IV STA (08:07)
[2024-06-17 09:23] VITALS: BP 119/69; PULSE 69; TEMP 98.3
== END 2024-06-17 09:30 | disposition home or self-care (01) ==
LOC: EC 02:36
DX: R42 Dizziness and giddiness (principal); M47.812 Spondylosis without myelopathy or radiculopathy, cervical region; G89.29 Other chronic pain; E86.0 Dehydration; Z88.3 Allergy status to other anti-infective agents; Z88.5 Allergy status to narcotic agent; Z91.013 Allergy to seafood; Z91.041 Radiographic dye allergy status
CPT/HCPCS: 36415; 70450; 72125; 80053; 83605; 84484; 85025; 93005; 96360; 99285

== ENCOUNTER → 2024-06-30 | Outpatient (CLI) | payer MEDICARE, OTHER | LOC: PNWHC3 10:45 | PROVIDERS: ATTEND Specialist | DX: M25.512 Pain in left shoulder | CPT/HCPCS: 99211 ==

== ENCOUNTER 2024-08-08 09:49 | Emergency (ER) | payer MEDICARE, OTHER ==
--- NOTE | 2024-08-08 10:06 | ED ---
Fall HPI - General Chief Complaint: Fall Stated Complaint: Fall Time Seen by Provider: 08/08/24 09:52 Source: patient, EMS, RN notes reviewed Mode of arrival: EMS Limitations: physical limitation - History of Present Illness Initial Comments: 79 year old male presents to emergency department via EMS for chief complaint of fall at residential. Reports that he fell this morning landing on left side. States that he did hit head and shoulder and he is taking blood thinners. Denies headache, syncope, shortness of breath, visual changes, neck stiffness, and neurologic deficits outside of previous CVA. - Related Data Home Medications Medication Instructions Recorded Confirmed Acetaminophen [Tylenol 8 Hour] 650 mg PO Q6H PRN 08/08/24 08/08/24 Ascorbic Acid [Vitamin C] 500 mg PO DAILY 08/08/24 08/08/24 Aspirin 81 mg PO DAILY 08/08/24 08/08/24 Atorvastatin Calcium [Lipitor] 40 mg PO HS 08/08/24 08/08/24 Cholecalciferol [Vitamin D3 (25 50 mcg PO DAILY 08/08/24 08/08/24 Mcg = 1000 Iu)] Folic Acid 1 mg PO DAILY 08/08/24 08/08/24 Gabapentin 600 mg PO BID 08/08/24 08/08/24 Gabapentin [Neurontin] 100 mg PO BID 08/08/24 08/08/24 Losartan [Cozaar] 25 mg PO HS 08/08/24 08/08/24 Melatonin 10 mg PO HS 08/08/24 08/08/24 Mirabegron [Mirabegron ER] 25 mg PO HS 08/08/24 08/08/24 Omeprazole [PriLOSEC] 20 mg PO DAILY@0600 08/08/24 08/08/24 Ondansetron [Zofran] 4 mg PO Q8H PRN 08/08/24 08/08/24 Sertraline [Zoloft] 50 mg PO HS 08/08/24 08/08/24 Ticagrelor [Brilinta] 90 mg PO BID 08/08/24 08/08/24 Zguard 1 applic TOPICAL BID 08/08/24 08/08/24 Zinc Gluconate [Zinc] 50 mg PO DAILY 08/08/24 08/08/24 clonazePAM [KlonoPIN] 0.5 mg PO BID PRN 08/08/24 08/08/24 metFORMIN HCL 1,000 mg PO W/LUNCH 08/08/24 08/08/24 methocarbamoL [Robaxin] 500 mg PO TID@0600,1400,2200 08/08/24 08/08/24 miSOPROStoL [Cytotec] 200 mcg PO BID 08/08/24 08/08/24 polyethylene glycoL 3350 [Miralax] 17 gm PO DAILY@0600 08/08/24 08/08/24 rOPINIRole HCL [Requip] 2 mg PO TID@0600,1400,2200 08/08/24 08/08/24 traMADol HCl [Ultram] 50 mg PO Q6HR 08/08/24 08/08/24 Allergies Allergy/AdvReac Type Severity Reaction Status Date / Time iodine AdvReac Rapid Verified 08/08/24 10:38 Heart Rate niacin AdvReac FLUSHED Verified 08/08/24 10:38 oxycodone HCl AdvReac "MADE HIM Verified 08/08/24 10:38 [From OxyContin] GO INTO ANOTHER WORLD" shellfish derived [Shellfish] AdvReac Rapid Verified 08/08/24 10:38 Heart Rate/SEIZURE Review of Systems ROS Statement: Those systems with pertinent positive or pertinent negative responses have been documented in the HPI. ROS Other: All systems not noted in ROS Statement are negative. Past Medical History Past Medical History: GERD/Reflux, Hyperlipidemia, Hypertension, Osteoarthritis (OA), Prostate Disorder, Renal Disease Additional Past Medical History / Comment(s): RESTLESS LEG, nephrolithiasis- passed on his own. History of Any Multi-Drug Resistant Organisms: None Reported Past Surgical History: Joint Replacement, Orthopedic Surgery, Prostate Surgery Additional Past Surgical History / Comment(s): 03/07/16 Total L knee arthroplasty. Other surgical hx: RT ROTATOR CUFF, RT EYE CATARACT, colonoscopy, prostate removed, Past Anesthesia/Blood Transfusion Reactions: No Reported Reaction Past Psychological History: No Psychological Hx Reported Smoking Status: Never smoker Past Alcohol Use History: Rare Past Drug Use History: None Reported - Past Family History Mother Family Medical History: Dementia Additional Family Medical History / Comment(s): Mother at age 91 or 92 yrs. She had dementia later in her life. Father Additional Family Medical History / Comment(s): Father of heart problems at the age of 78 yrs. General Exam Limitations: no limitations General appearance: alert, in no apparent distress Head exam: Present: atraumatic, normocephalic, normal inspection Eye exam: Present: normal appearance, EOMI. Absent: scleral icterus, conjunctival injection, periorbital swelling Pupils: Present: irregular, unequal (Baseline) ENT exam: Present: normal exam, mucous membranes moist Neck exam: Present: normal inspection. Absent: tenderness, meningismus, lymphadenopathy Respiratory exam: Present: normal lung sounds bilaterally. Absent: respiratory distress, wheezes, rales, rhonchi, stridor Cardiovascular Exam: Present: regular rate, normal rhythm, normal heart sounds. Absent: systolic murmur, diastolic murmur, rubs, gallop, clicks GI/Abdominal exam: Present: soft, normal bowel sounds. Absent: distended, tenderness, guarding, rebound, rigid Extremities exam: Present: normal inspection, full ROM, normal capillary refill. Absent: tenderness, pedal edema, joint swelling, calf tenderness Back exam: Present: normal inspection Neurological exam: Present: alert, oriented X3, CN II-XII intact Psychiatric exam: Present: normal affect, normal mood Skin exam: Present: warm, dry, intact, normal color. Absent: rash Course Vital Signs 08/08/24 08/08/24 09:51 10:58 Temperature 97.0 F L Pulse Rate 77 64 Respiratory 18 18 Rate Blood Pressure 137/82 119/65 O2 Sat by Pulse 98 95 Oximetry Medical Decision Making - Medical Decision Making Was pt. sent in by a medical professional or institution (, PA, BIOMETRIC FINGERPRINTING TECHNICIAN, urgent care, hospital, or residential...) When possible be specific @ -No Did you speak to anyone other than the patient for history (EMS, parent, family, police, friend...)? What history was obtained from this source @ -No Did you review nursing and triage notes (agree or disagree)? Why? @ -I reviewed and agree with nursing and triage notes Were old charts reviewed (outside hosp., previous admission, EMS record, old EKG, old radiological studies, urgent care reports/EKG's, residential records)? Report findings @ -No old charts were reviewed Differential Diagnosis (chest pain, altered mental status, abdominal pain women, abdominal pain men, vaginal bleeding, weakness, fever, dyspnea, syncope, headache, dizziness, GI bleed, back pain, seizure, CVA, palpatations, mental health, musculoskeletal)? @ -Fall, intracranial hemorrhage, skull fracture, closed head injury, EKG interpreted by me (3pts min.). @ -None X-rays interpreted by me (1pt min.). @ -None done CT interpreted by me (1pt min.). @ - CT brain, C-spine no acute fracture there is prior CVA noted and similar to previous CT brain U/S interpreted by me (1pt. min.). @ -None done What testing was considered but not performed or refused? (CT, X-rays, U/S, labs)? Why? @ -None What meds were considered but not given or refused? Why? @ -None Did you discuss the management of the patient with other professionals (professionals i.e. , PA, BIOMETRIC FINGERPRINTING TECHNICIAN, lab, RT, psych nurse, social sciences research scientist, stave cutter, teacher, mortgage loan officer originator, counter caser)? Give summary @ -No Was smoking cessation discussed for >3mins.? @ -No Was critical care preformed (if so, how long)? @ -No Were there social determinants of health that impacted care today? How? (Homelessness, low income, unemployed, alcoholism, drug addiction, transportation, low edu. Level, literacy, decrease access to med. care, retirement, rehab)? @ -No Was there de-escalation of care discussed even if they declined (Discuss DNR or withdrawal of care, Hospice)? DNR status @ -No What co-morbidities impacted this encounter? (DM, HTN, Smoking, COPD, CAD, Cancer, CVA, ARF, Chemo, Hep., AIDS, mental health diagnosis, sleep apnea, morbid obesity)? @ -None Was patient admitted / discharged? Hospital course, mention meds given and route, prescriptions, significant lab abnormalities, going to OR and other pertinent info. @ -Discharge patient presented after a fall, head injury at residential. CT does not show any acute changes. Patient has old CVA will be discharged in stable condition. Undiagnosed new problem with uncertain prognosis? @ -No Drug Therapy requiring intensive monitoring for toxicity (Heparin, Nitro, Insulin, Cardizem)? @ -No Were any procedures done? @ -No Diagnosis/symptom? @ -Fall, head injury Acute, or Chronic, or Acute on Chronic? @ -Acute Uncomplicated (without systemic symptoms) or Complicated (systemic symptoms)? @ -Uncomplicated Side effects of treatment? @ -No Exacerbation, Progression, or Severe Exacerbation? @ -No Poses a threat to life or bodily function? How? (Chest pain, [place], MT, pneumonia, PE, COPD, DKA, ARF, appy, cholecystitis, CVA, Diverticulitis, Homicidal, Suicidal, threat to staff... and all critical care pts) @ -No Disposition Clinical Impression: Fall, Closed head injury Disposition: HOME SELF-CARE Condition: Stable Instructions (If sedation given, give patient instructions): Head Injury (ED) Additional Instructions: Please return to the Emergency Department if symptoms worsen or any other concerns. Is patient prescribed a controlled substance at d/c from ED?: No Referrals: Yaya Ramirez MD [Primary Care Provider] - 1-2 days Time of Disposition: 11:24
[2024-08-08 10:59] VITALS: PULSE 64
--- NOTE | 2024-08-08 11:15 | CT ---
EXAMINATION TYPE: CT brain az wo con DATE OF EXAM: 08/08/2024 COMPARISON: 06/17/2024 HISTORY: Fall on thinners CT DLP: 1543.8 mGycm Automated exposure control for dose reduction was used. TECHNIQUE: CT scan of the head and cervical spine are performed without contrast. Findings: Head CT: Ventricles, basal cisterns and sulci over convexities within normal limits for the patient's age. The re is a large area of decreased parenchymal density/encephalomalacia involving the right cerebral hem isphere consistent with a stable remote right middle cerebral artery ischemic infarct. There is no ma ss effect or shift of midline structures. There is no acute intra or extra-axial hemorrhage. Posterior fossa including the brainstem, fourth ventricle and cerebellar pontine angles are grossly n ormal. The intraorbital contents appear normal and symmetric. Visualized paranasal sinuses are well aerated. CT cervical spine: Craniovertebral junction relationships and prevertebral soft tissues are normal. The cervical vertebral segments are normal in height. There is a 3 mm retrolisthesis of C3 on C4. The re is advanced degenerative disc disease at C3-4 and C6-7 levels.. There is no bony encroachment of the cervical canal. There is moderate to marked bony neural foramina l encroachment at the C3-4 level on the right at the C4-5 level on the left. The paraspinal soft tiss ues unremarkable. IMPRESSION: 1. Head CT: No acute bleed or mass effect. Large remote right MCA infarct. 2. CT cervical spine: No acute trauma. Degenerative disc disease in osteoarthritic change at facet nadir ints and uncovertebral joints as described above. [facility], , 08/08/2024 11:13 AM
--- NOTE | 2024-08-08 12:24 | XR ---
EXAMINATION TYPE: XR Hip LT and AP Pelvis DATE OF EXAM: 08/08/2024 COMPARISON: NONE HISTORY: Pain TECHNIQUE: A single AP view of the pelvis is obtained. Two views of the left hip are obtained. FINDINGS: There is no acute fracture/dislocation evident in the pelvis. The hip and sacroiliac join ts appear symmetric and unremarkable. The overlying soft tissue appears unremarkable. Two views of left hip show no acute fracture or dislocation. No focal lytic or sclerotic lesion seen in the proximal left femur. The overlying soft tissue is unremarkable. IMPRESSION: There is no acute fracture or dislocation in the pelvis or left hip. [facility], , 08/08/2024 12:22 PM
[2024-08-08 12:40] VITALS: BP 145/70; RESP 62; TEMP 98.7
== END 2024-08-08 14:15 | disposition home or self-care (01) ==
LOC: EC 09:49
CPT/HCPCS: 70450; 72125; 73502

== ENCOUNTER → 2024-08-14 | Outpatient (CLI) | payer MEDICARE, OTHER ==
--- NOTE | 2024-08-14 12:18 | CT ---
EXAMINATION TYPE: CT brain wo con DATE OF EXAM: 08/14/2024 COMPARISON: 06/17/2024 HISTORY: recent fall hit head, stroke in 2020 CT DLP: 1064.30 mGycm Automated exposure control for dose reduction was used. FINDINGS: The ventricles, basal cisterns and sulci convexities are moderately enlarged consistent with moderate generalized atrophy. There is a large area of encephalomalacia involving the right cerebral hemisphere with ex vacuo dilat ation of the right lateral ventricle consistent with stable remote infarct in the distribution of the right middle cerebral artery. There is no mass effect or shift of the midline structures. There is no acute intra or extra-axial hemorrhage. Posterior fossa is grossly normal. The intraorbital contents appear normal symmetric. The visualized paranasal sinuses and mastoid air cells are well aerated. The calvarium is intact. IMPRESSION: 1. No acute bleed or mass effect. 2. Moderate atrophy. 3. Marked remote right MCA infarct as described above. IMPRESSION: [facility], , 08/14/2024 12:16 PM
== END | disposition home or self-care (01) ==
LOC: RADCTMAIN 11:22
PROVIDERS: ATTEND Specialist
DX: G31.9 Degenerative disease of nervous system, unspecified (principal); M54.81 Occipital neuralgia; G44.209 Tension-type headache, unspecified, not intractable; Z86.73 Personal history of transient ischemic attack (TIA), and cerebral infarction without residual deficits
CPT/HCPCS: 70450